=== PATIENT | female | born 1995 | race African-American/Black ===

== ENCOUNTER 2019-04-04 12:51 | Emergency (ER) | payer MEDICAID ==
[~2019-04-04] VITALS: Ht 167.6 cm; Wt 81.6 kg
[2019-04-04 12:55] VITALS: BP 145/79
[2019-04-04] MEDS ORDERED: KETOROLAC TROMETH 60MG/2ML VIAL IM ONE (18:00)
== END 2019-04-04 18:31 | disposition home or self-care (01) ==
LOC: ER 12:51
DX: M54.5 Low back pain (principal); F17.210 Nicotine dependence, cigarettes, uncomplicated
CPT/HCPCS: 72100; 96372; 99283; J1885